=== PATIENT | male | born 2005 | race African-American/Black ===

== ENCOUNTER 2023-08-16 12:55 | Emergency (ER) | payer MEDICAID, SELFPAY ==
[2023-08-16 12:56] VITALS: BP 108/75; PULSE 92; RESP 18; TEMP 37; O2SAT 100; BMI 17.5
--- NOTE | 2023-08-16 13:02 | EKG12_ITS ---
Test Reason : SOB Blood Pressure : / mmHG Vent. Rate : 077 BPM Atrial Rate : 077 BPM P-R Int : 148 ms QRS Dur : 094 ms QT Int : 350 ms P-R-T Axes : 077 091 073 degrees QTc Int : 396 ms Normal sinus rhythm with sinus arrhythmia Rightward axis Incomplete right bundle branch block Borderline ECG Confirmed by MERCED CHEATHAM, MAKSIM ([id number]), primer expeditor and drier MYRON KOCH ([id number]) on 08/18/2023 12:06:18 PM Referred By: Confirmed By:MAKSIM BLACKWOOD MD
--- NOTE | 2023-08-16 13:03 | EX.ED.DYSGE1 ---
HPI <TACO Rdz - Last Filed: 08/16/23 14:20> History of Present Illness Chief Complaint: Shortness of Breath Narrative Narrative: 18-year-old male with no past medical history presents with 4 days of malaise, cough and shortness of breath. He denies fever or chills. No chest pain. No GI symptoms. He smokes 4 cigarettes a day but denies history of asthma. No cardiac history. No history of DVT/PE or risk factors. PFSH <TACO Rdz - Last Filed: 08/16/23 14:20> PFSH Medical History no medical history Allergy/AdvReac Type Severity Reaction Status Date / Time No Known Allergies Allergy Verified 08/16/23 12:56 Social History Smoking Status: Current every day smoker tobacco type: cigarettes ROS <TACO Rdz - Last Filed: 08/16/23 14:20> ROS ED ROS Narrative Constitutional: Negative for fever, chills. ENT: Negative for sore throat, rhinorrhea. CVS: Negative for palpitations, chest pain, syncope. Respiratory: Positive for shortness of breath, cough. GI: Negative for abdominal pain, nausea, vomiting, diarrhea. Neuro: Negative for headache. EXAM <TACO Rdz - Last Filed: 08/16/23 14:20> Physical Exam Narrative Exam Narrative: CONST: Patient appears uncomfortable but nontoxic EYES: Normal inspection. ENT: Normal inspection, moist mucous membranes. NECK: Normal inspection. RESP: No respiratory distress, CTAB. CVS: Regular rate and rhythm, no murmur, no gallop. SKIN: Color normal, no rash, warm, dry, intact. EXTREMITIES: Normal appearance, no pedal edema. NEURO: Oriented x4. PSYCH: Normal affect. Const Vital Signs: 08/16/23 12:56 08/16/23 14:04 08/16/23 14:07 Temperature 98.6 F Temperature Source Oral Pulse Rate 92 72 Respiratory Rate 18 20 H Respiratory Effort Short of Breath Respiratory Depth Normal Respiratory Pattern Tachypnea Blood Pressure 108/75 Blood Pressure Mean 86 Pulse Ox 100 99 Oxygen Delivery Method Room Air Room Air <Dr. Bhanu Marie MD - Last Filed: 08/16/23 15:16> Physical Exam Const Vital Signs: 08/16/23 12:56 08/16/23 14:04 08/16/23 14:07 Temperature 98.6 F Temperature Source Oral Pulse Rate 92 72 Respiratory Rate 18 20 H Respiratory Effort Short of Breath Respiratory Depth Normal Respiratory Pattern Tachypnea Blood Pressure 108/75 Blood Pressure Mean 86 Pulse Ox 100 99 Oxygen Delivery Method Room Air Room Air [facility] <TACO Rdz - Last Filed: 08/16/23 14:20> [facility] Narrative Medical decision making narrative: Patient was evaluated for 4-day history of malaise, cough and shortness of breath. He looks like he does not feel well but nontoxic appearing. Vital signs are within normal limits. He speaking full sentences and 100% on room air. Heart is regular rate and rhythm with no murmurs and lungs are clear. Differential includes viral etiology, pneumonia, pneumothorax. I do not suspect ACS or PE as he has no chest pain and he is PERC negative. CXR shows no acute process. EKG is sinus rhythm with no acute ischemic changes. COVID/flu swabs are negative. He also reported increased thirst but no polyuria or polyphagia but a blood sugar was checked and is normal at 82. I discussed he most likely has a viral illness causing his cough and shortness of breath and discussed return precautions. He was discharged in stable condition. My independent interpretation of the patient's two-view PA and lateral chest x-ray shows no sign of acute infiltrate. No pneumothorax. This is calling normally x-ray. Final reading is normal x-ray examination of the chest. Lab Data Labs: Laboratory Results - last 24 hr 08/16/23 14:01 POC Glucose 82 Radiography Diagnostic Testing: Clinical Impression(s) from Imaging Studies Chest X-Ray 08/16/23 13:15 IMPRESSION: Normal x-ray examination of the chest. Electronically Signed: Willi Winter MD at 13:35 EST , EKG Initial EKG: Attestation: I personally reviewed and interpreted this EKG as follows: Interpretation: Sinus Rhythm and No Acute Injury Pattern Comments: Normal sinus rhythm with sinus arrhythmia at 77 bpm Rightward axis Incomplete RBBB <Dr. Bhanu Marie MD - Last Filed: 08/16/23 15:16> MDM MDM Narrative Medical decision making narrative: My independent interpretation of the patient's two-view PA and lateral chest x-ray shows no sign of acute infiltrate. No pneumothorax. This is calling normally x-ray. Final reading is normal x-ray examination of the chest. Lab Data Labs: Laboratory Results - last 24 hr 08/16/23 14:01 POC Glucose 82 Radiography Diagnostic Testing: Clinical Impression(s) from Imaging Studies Chest X-Ray 08/16/23 13:15 IMPRESSION: Normal x-ray examination of the chest. Electronically Signed: Willi Winter MD at 13:35 EST Reading Location ID and State: [facility] / [place] , Service support , Treatment and Re-Evaluation :: I have personally performed a face to face assessment of the patient and have reviewed the KSENIA Note. I performed a substantive portion of the visit including all aspects of the following. My fox findings include: History: Patient presents with about 4 days of some cough. He has slight myalgias. He has malaise. He does not know if he has had a fever. No nausea vomiting diarrhea or abdominal pain. He is a smoker. Does not know if he has been exposed to any illnesses. On review of systems I also find out he has been drinking a lot more water but denies polyuria. Exam: Patient is awake alert. No acute distress. Nontoxic. HEENT shows no tenderness. Mucous membranes are reasonably moist. Neck is supple no stridor. Lungs are clear bilaterally and saturations are normal at 99-100% on room air showing no hypoxia. Abdomen is soft and nontender. No peripheral edema or tenderness. No rashes noted. Medical Decision Making: Patient likely has viral illness. We will do x-ray and COVID and flu swabs. The swabs are negative as well as the x-ray. We did add BGT with his polydipsia. It was normal at 82. I think the patient should have resolved. I do not think he needs any specific treatment. This is likely a viral illness. Discharge Plan Triage Chief Complaint: Shortness of Breath ED Midlevel Provider: Rahel Knox ED Provider: Bhanu Marie Dx/Rx/DC Orders Clinical Impression: Acute upper respiratory infection Instructions: ED URI, Viral, No Abx (Adult) Primary Care Provider: Care Physician,No Primary Referrals: NOT,DEFINED [Non-Staff] - Activity Restrictions/Additional Instructions: Your chest x-ray and EKG look normal. Your COVID and flu test are negative. I suspect you have a viral upper respiratory infection causing the cough and shortness of breath. I recommend [id number] cough medication or Mucinex and follow-up with your primary care doctor Disposition Disposition: Home, Self Care Discharge Date/Time: 08/16/23 14:09
--- NOTE | 2023-08-16 13:09 | NURSING ---
NO OLD EKGS
--- NOTE | 2023-08-16 13:15 | RAD_ITS ---
STUDY: X-RAY CHEST REASON FOR EXAM: Male, 18 years old. dyspnea TECHNIQUE: PA and lateral views of the chest. COMPARISON: None. FINDINGS: The lungs are clear and expanded. There is no demonstrated pleural abnormality. Normal size heart. Normal mediastinum and itz. Normal visualized pulmonary arteries. Normal visualized aortic arch and descending thoracic aorta. Normal visualized thoracic spine. Normal visualized ribs, clavicles, and shoulders. There is no demonstrated abnormality of the visualized soft tissue structures of the upper abdomen. RAD/Chest PA and Lateral IMPRESSION: Normal x-ray examination of the chest. Electronically Signed: Willi Winter MD at 13:35 EST ,
[2023-08-16 14:04] VITALS: O2SAT 98
[2023-08-16 14:07] VITALS: PULSE 72; RESP 20; O2SAT 99
[2023-08-16 14:19] LABS: Bedside Glucose 82 mg/dL (74-106)
== END 2023-08-16 14:09 | disposition home or self-care (01) ==
PROVIDERS: Emergency Provider Emergency Medicine; Visit Provider Emergency Medicine
DX: R06.02 Shortness of breath (principal); J06.9 Acute upper respiratory infection, unspecified; F17.210 Nicotine dependence, cigarettes, uncomplicated; R53.81 Other malaise; R05.9 Cough, unspecified
CPT/HCPCS: 71046; 82962; 87428; 93005; 99282

== ENCOUNTER 2024-02-28 08:55 | Emergency (ER) | payer MEDICAID, SELFPAY ==
[2024-02-28 08:56] VITALS: BP 113/84; PULSE 77; RESP 18; TEMP 36.4; O2SAT 100; BMI 18.3
--- NOTE | 2024-02-28 09:15 | EDS_ITS ---
HPI HPI - URI History of Present Illness Chief Complaint: Cough Informant: patient Onset/Context/Timing Onset: Days (2 days ago) Context: Sudden Onset Timing: Intermittent Quality: Hemoptysis Location: Chest Relieved by: - (Sitting up) Associated Symptoms Associated Symptoms: Positive for Hemoptysis; Negative for Nasal Congestion, Headache, Sinus Pressure, Myalgias, Nausea, Vomiting, Diarrhea, Shortness of Breath, Chest Pain, Nonproductive cough or Productive Cough Narrative Narrative: Patient presents with cough that has been constant for the past 2 days. Patient states it began rather suddenly. Patient states he was coughing up some blood a couple days ago. Patient states he feels a iron taste in his mouth when he coughs. Patient states his cough is better when he is able to sit up. Patient admits to subjective fever at home. Patient denies any nausea or vomiting. Patient denies any shortness of breath. Patient denies any chest pain. ROS ROS ED Constitutional Constitutional ED: Reports fever(s); Denies chills Eyes Eyes: Denies blurry vision or change in vision ENT ENT ED: Denies rhinorrhea or sore throat Cardiovascular Cardiovascular: Denies chest pain or palpitations Respiratory/Chest Respiratory/Chest: Reports cough; Denies dyspnea Gastrointestinal Gastrointestinal: Denies nausea or vomiting Genitourinary Genitourinary ED: Denies dysuria or hematuria Musculoskeletal Musculoskeletal: Denies back pain or neck pain Integumentary Denies abscess or rash Neurologic Neurologic: Denies headache(s) or weakness Allergic/Immunologic Allergic/Immunologic ED: Denies mouth swelling or urticaria PFSH PFSH no medical history Allergy/AdvReac Type Severity Reaction Status Date / Time No Known Allergies Allergy Verified 08/16/23 12:56 no surgical history Social History Smoking Status: Current every day smoker tobacco type: cigarettes EXAM Physical Exam Const Vital Signs: 02/28/24 08:56 Temperature 97.6 F L Temperature Source Temporal Pulse Rate 77 Respiratory Rate 18 Blood Pressure 113/84 H Blood Pressure Mean 93 Pulse Ox 100 Oxygen Delivery Method Room Air Positive well nourished and well developed General Appearance ED: well developed and NAD HEENT Reports moist mucous membranes normocephalic and atraumatic Neck supple, no meningeal signs and no JVD Resp normal respiratory effort and clear to auscultation bilaterally Cardio Rate: regular rate Rhythm: regular rhythm GI non-tender and non-distended Palpation: soft Extremity normal to inspection and full ROM General Extremety ED: Negative for tenderness Neuro oriented x3, CN's II-XII intact bilaterally and no sensory deficits noted Sensorium / Orientation: alert Motor Exam: strength 5/5 throughout Psych mental status grossly normal MDM MDM MDM Narrative Medical decision making narrative: Differential diagnosis includes pneumonia, pulmonary embolism, pneumothorax, and viral illness. Chest x-ray was ordered to assess for pneumonia and pneumothorax. CBC was ordered to assess for leukocytosis and anemia. Basic metabolic profile was ordered to assess for electrolyte abnormality and renal function. COVID-19, influenza, and RSV PCR was ordered to assess for viral illness. Treatment and Re-Evaluation Narrative: Patient refused all treatment. Patient states he needed a work note. Patient left prior to completing any treatment or signing AMA paperwork. Discharge Plan Triage Chief Complaint: Cough ED Provider: Fredo aBrba Dx/Rx/DC Orders Clinical Impression: Viral bronchitis Primary Care Provider: Care Physician,No Primary Referrals: Care Physician,No Primary [Primary Care Provider] - Print Language: Citizen Of [place] Disposition Disposition: Elopement
--- NOTE | 2024-02-28 09:43 | ED.RN ---
WENT IN TO DO TEST ON PT AND HE REFUSED. STATED HE DIDN'T NEED ANY OF IT DONE. PT WALKED OUT AND THEN CAME BACK IN REQUESTING A WORK NOTE. EXPLAINED IT WOULD SAY WHAT TIME HE CAME IN AND WHAT TIME HE LEFT. PT WAS FINE WITH THAT.
[2024-02-28 10:59] VITALS: O2SAT 98
== END 2024-02-28 11:02 | disposition left against medical advice (07) ==
PROVIDERS: Emergency Provider Emergency Medicine; Visit Provider Emergency Medicine
DX: J20.8 Acute bronchitis due to other specified organisms (principal); F17.210 Nicotine dependence, cigarettes, uncomplicated
CPT/HCPCS: 99282

== ENCOUNTER 2025-01-06 15:52 | Emergency (ER) | payer MEDICAID, SELFPAY ==
[2025-01-06 15:53] VITALS: BP 130/87; PULSE 98; RESP 18; TEMP 36.6; O2SAT 98; BMI 17.4
== END 2025-01-06 17:42 | disposition left against medical advice (07) ==
LOC: ED 17:46
DX: Z00.00 Encounter for general adult medical examination without abnormal findings (principal)